=== PATIENT | male | born 1960 | race Caucasian/White ===

== ENCOUNTER 2017-07-22 15:19 | Emergency (ER) | payer MEDICARE ==
[~2017-07-22] VITALS: Ht 175.3 cm; Wt 165.9 kg
[~2017-07-22 15:19] MED LIST: ALLO100T30 PO; ALLO300T PO; AMOX1TAB64 PO; ATOR10TA9 PO; LEVO750T6 PO; LISI-167 PO; METR500T PO; OXYC1TAB7 PO; RIVA20TA PO; SILV20CR13
[2017-07-22] MEDS ORDERED: SODIUM CHLORIDE FLUSH 10ML SYR IVF ONE (16:00)
[2017-07-22 16:27] LABS: HEMATOCRIT 46.5 % (39.2-51.8); HEMOGLOBIN 15.4 g/dL (13.7-18.0); WHITE BLOOD COUNT 9.4 x10^3/uL (3.4-10)
[2017-07-22 16:44] LABS: BLOOD UREA NITROGEN 20 mg/dL (7-18)
[2017-07-22 16:49] LABS: IS PT STATUS REG ER OR PRE ER? YES
[2017-07-22] MEDS ORDERED: ACETAMINOPHEN 325 MG TABLET ONE (17:55)
[2017-07-22] MEDS ORDERED: ACETAMINOPHEN 325 MG TABLET PO ONE (18:00)
[2017-07-22 18:38] VITALS: BP 122/72
== END 2017-07-22 19:28 | disposition home or self-care (01) ==
LOC: ED 17:48
DX: S70.02XA Contusion of left hip, initial encounter (principal); S20.212A Contusion of left front wall of thorax, initial encounter; E11.9 Type 2 diabetes mellitus without complications; I10 Essential (primary) hypertension; I25.2 Old myocardial infarction; I25.10 Atherosclerotic heart disease of native coronary artery without angina pectoris; Z86.718 Personal history of other venous thrombosis and embolism; Z86.73 Personal history of transient ischemic attack (TIA), and cerebral infarction without residual deficits; V89.2XXA Person injured in unspecified motor-vehicle accident, traffic, initial encounter; Y93.89 Activity, other specified; Y92.89 Other specified places as the place of occurrence of the external cause; Y99.9 Unspecified external cause status
CPT/HCPCS: 36415; 70450; 71010; 80048; 82040; 84484; 85025; 85610; 93005; 99285

== ENCOUNTER 2017-08-15 12:35 | Inpatient (IN) | payer MEDICARE ==
[~2017-08-15] VITALS: Ht 177.8 cm; Wt 168.9 kg
[2017-08-15] MEDS ORDERED: ONDANSETRON 2MG/ML, 2ML IVPush PRN (17:00)
[2017-08-15] MEDS ORDERED: ONDANSETRON ODT 4 MG PO PRN (17:00)
[2017-08-15] MEDS ORDERED: LABETALOL 5MG/ML, 20ML IVPush PRN (17:00)
[2017-08-15] MEDS ORDERED: GUAIFENESIN/DM 200-20MG, 10ML UDC PO PRN (17:00)
[2017-08-15 17:11] LABS: BASOPHILS # (AUTO) 0.05 x10^3/uL (0-0.1); BASOPHILS % (AUTO) 1 % (0-1); EOSINOPHILS # (AUTO) 0.07 x10^3/uL (0-0.4); EOSINOPHILS % (AUTO) 1 % (1-7); LYMPHOCYTES # (AUTO) 1.34 x10^3/uL (1-3.4); LYMPHOCYTES % (AUTO) 13 % (22-44); MD NO; MEAN CORPUSCULAR HGB CONC 33.6 g/dL (33.2-36.2); MEAN CORPUSCULAR VOLUME 98.1 fL (81-97); MEAN PLATELET VOLUME 7.5 fL (7.4-10.4); MONOCYTES # (AUTO) 0.56 x10^3/uL (0.2-0.8); MONOCYTES % (AUTO) 6 % (2-9); NEUTROPHILS # (AUTO) 7.96 x10^3/uL (1.8-6.8); NEUTROPHILS % (AUTO) 80 % (42-75); PLATELET COUNT 230 x10^3/uL (130-400); RED BLOOD COUNT 4.47 x10^6/uL (4.38-5.82); RED CELL DISTRIBUTION WIDTH 15.3 % (9.4-14.8)
[2017-08-15 17:16] LABS: INTERNATIONAL NORMALIZED RATIO 1.04 (0.93-1.1); PROTHROMBIN TIME 10.8 Seconds (9.6-11.5)
[2017-08-15 17:20] LABS: ALBUMIN 3.7 g/dL (3.4-5.0); ANION GAP 7 mmol/L (5-15); CHLORIDE 108 mmol/L (98-107)
[2017-08-15 17:23] LABS: ALANINE AMINOTRANSFERASE 29 U/L (12-78); ALKALINE PHOSPHATASE 77 U/L (45-117); BILIRUBIN,TOTAL 0.5 mg/dL (0.2-1.0); CREATININE 1.42 mg/dL (0.7-1.3); TOTAL PROTEIN 7.3 g/dL (6.4-8.2)
[2017-08-15 17:52] VITALS: BP 146/78
[2017-08-15 18:36] LABS: CULTURE INDICATED? NO; MICROSCOPIC NOT IND
[2017-08-15] MEDS: HYDROcodone/APAP 5/325 TABLET PO PRN (19:28)
[2017-08-15 19:30] VITALS: BP 119/73
[2017-08-15] MEDS: ATORVASTATIN 10 MG TABLET PO SCH (21:16)
[2017-08-16] MEDS: HYDROcodone/APAP 5/325 TABLET PO PRN ×4 (02:46→23:07)
[2017-08-16 02:54] VITALS: BP 121/69
[2017-08-16 06:45] VITALS: BP 132/84
[2017-08-16] MEDS: ALLOPURINOL 300 MG TABLET PO SCH (08:33)
[2017-08-16] MEDS: LISINOPRIL 20 MG TABLET PO SCH (08:33)
[2017-08-16] MEDS: SENNA/DOCUSATE TABLET PO SCH (08:33)
[2017-08-16] MEDS: RIVAROXABAN 20 MG TABLET PO SCH (08:33)
[2017-08-16 13:05] VITALS: BP 120/76
[2017-08-16 16:30] LABS: MEAN CORPUSCULAR HEMOGLOBIN 32.5 pg (27.5-34.5); MEAN CORPUSCULAR HGB CONC 33.2 g/dL (33.2-36.2); MEAN PLATELET VOLUME 7.3 fL (7.4-10.4); PLATELET COUNT 201 x10^3/uL (130-400); RED BLOOD COUNT 4.18 x10^6/uL (4.38-5.82); RED CELL DISTRIBUTION WIDTH 15.3 % (9.4-14.8)
[2017-08-16 16:37] LABS: ANION GAP 9 mmol/L (5-15); CALCIUM 8.3 mg/dL (8.5-10.1); CHLORIDE 107 mmol/L (98-107); CREATININE 1.22 mg/dL (0.7-1.3)
[2017-08-16 16:44] LABS: BASOPHILS # (AUTO) 0.02 x10^3/uL (0-0.1); BASOPHILS % (AUTO) 0 % (0-1); EOSINOPHILS # (AUTO) 0.17 x10^3/uL (0-0.4); EOSINOPHILS % (AUTO) 3 % (1-7); LYMPHOCYTES # (AUTO) 1.55 x10^3/uL (1-3.4); LYMPHOCYTES % (AUTO) 23 % (22-44); MD SCAN; MONOCYTES # (AUTO) 0.56 x10^3/uL (0.2-0.8); MONOCYTES % (AUTO) 8 % (2-9); NEUTROPHILS # (AUTO) 4.41 x10^3/uL (1.8-6.8); NEUTROPHILS % (AUTO) 66 % (42-75)
[2017-08-16 20:09] VITALS: BP 115/75
[2017-08-16] MEDS: ATORVASTATIN 10 MG TABLET PO SCH (20:10)
[2017-08-17 03:44] VITALS: BP 125/73
[2017-08-17] MEDS: HYDROcodone/APAP 5/325 TABLET PO PRN ×2 (06:40→11:41)
[2017-08-17 06:59] VITALS: BP 145/84
[2017-08-17] MEDS: RIVAROXABAN 20 MG TABLET PO SCH (08:48)
[2017-08-17] MEDS: SENNA/DOCUSATE TABLET PO SCH (08:48)
[2017-08-17] MEDS: LISINOPRIL 20 MG TABLET PO SCH (08:48)
[2017-08-17] MEDS: ALLOPURINOL 300 MG TABLET PO SCH (08:48)
[2017-08-17] MEDS: POLYETHYLENE GLYCOL 17 GM PACKET PO PRN (08:54)
[2017-08-17 14:16] VITALS: BP 126/80
[2017-08-17 19:16] VITALS: BP 142/76
[2017-08-17] MEDS: ATORVASTATIN 10 MG TABLET PO SCH (20:24)
[2017-08-18 02:47] VITALS: BP 122/77
[2017-08-18 08:22] VITALS: BP 135/82
[2017-08-18] MEDS: ALLOPURINOL 300 MG TABLET PO SCH (09:23)
[2017-08-18] MEDS: LISINOPRIL 20 MG TABLET PO SCH (09:23)
[2017-08-18] MEDS: SENNA/DOCUSATE TABLET PO SCH (09:23)
[2017-08-18] MEDS: RIVAROXABAN 20 MG TABLET PO SCH (09:23)
[2017-08-18] MEDS: POLYETHYLENE GLYCOL 17 GM PACKET PO PRN (09:27)
[2017-08-18 12:42] VITALS: BP 147/87
[2017-08-18] MEDS: HYDROcodone/APAP 5/325 TABLET PO PRN (14:07)
[2017-08-18 14:20] VITALS: BP 147/87
== END 2017-08-18 15:00 | DRG 562 ==
LOC: ED 15:04 → EDIP 16:44 → 4NOR 17:37
PROVIDERS: ADMIT Hospitalist; ATTEND Hospitalist
DX: S92.065A Nondisplaced intraarticular fracture of left calcaneus, initial encounter for closed fracture (principal); N17.0 Acute kidney failure with tubular necrosis; E66.01 Morbid (severe) obesity due to excess calories; D68.69 Other thrombophilia; Z68.43 Body mass index [BMI] 50.0-59.9, adult; I69.351 Hemiplegia and hemiparesis following cerebral infarction affecting right dominant side; W01.0XXA Fall on same level from slipping, tripping and stumbling without subsequent striking against object, initial encounter; S92.002A Unspecified fracture of left calcaneus, initial encounter for closed fracture; D17.9 Benign lipomatous neoplasm, unspecified; E11.9 Type 2 diabetes mellitus without complications; M10.9 Gout, unspecified; M21.372 Foot drop, left foot; E78.5 Hyperlipidemia, unspecified; Y93.01 Activity, walking, marching and hiking; I10 Essential (primary) hypertension; S93.492A Sprain of other ligament of left ankle, initial encounter; I25.10 Atherosclerotic heart disease of native coronary artery without angina pectoris; I25.2 Old myocardial infarction; Z79.899 Other long term (current) drug therapy; Z82.3 Family history of stroke; Z83.3 Family history of diabetes mellitus; Z85.72 Personal history of non-Hodgkin lymphomas; Z98.84 Bariatric surgery status; Z86.711 Personal history of pulmonary embolism; Z79.01 Long term (current) use of anticoagulants; Z86.718 Personal history of other venous thrombosis and embolism; Z90.89 Acquired absence of other organs; Z90.49 Acquired absence of other specified parts of digestive tract; Y92.091 Bathroom in other non-institutional residence as the place of occurrence of the external cause; Y99.8 Other external cause status
CPT/HCPCS: 29515; 36415; 80048; 80053; 81003; 83735; 85025; 85610; 85730; 99285

== ENCOUNTER 2018-02-08 01:06 | Emergency (ER) | payer MEDICARE ==
[~2018-02-08] VITALS: Ht 177.8 cm; Wt 150.0 kg
[2018-02-08 01:48] LABS: BASOPHILS # (AUTO) 0.04 x10^3/uL (0-0.1); BASOPHILS % (AUTO) 0 % (0-1); EOSINOPHILS # (AUTO) 0.16 x10^3/uL (0-0.4); EOSINOPHILS % (AUTO) 1 % (1-7); LYMPHOCYTES # (AUTO) 2.11 x10^3/uL (1-3.4); LYMPHOCYTES % (AUTO) 17 % (22-44); MD NO; MEAN CORPUSCULAR HGB CONC 33.4 g/dL (33.2-36.2); MEAN CORPUSCULAR VOLUME 98.9 fL (81-97); MEAN PLATELET VOLUME 7.7 fL (7.4-10.4); MONOCYTES # (AUTO) 0.44 x10^3/uL (0.2-0.8); MONOCYTES % (AUTO) 4 % (2-9); NEUTROPHILS # (AUTO) 9.35 x10^3/uL (1.8-6.8); NEUTROPHILS % (AUTO) 77 % (42-75); PLATELET COUNT 228 x10^3/uL (130-400); RED BLOOD COUNT 4.25 x10^6/uL (4.38-5.82); RED CELL DISTRIBUTION WIDTH 15.4 % (9.4-14.8)
[2018-02-08 01:59] LABS: ALBUMIN 3.6 g/dL (3.4-5.0); ANION GAP 5 mmol/L (5-15); CHLORIDE 114 mmol/L (98-107); CREATININE 1.46 mg/dL (0.7-1.3)
[2018-02-08] MEDS ORDERED: PHENAZOPYRIDINE 200 MG TABLET ONE (02:18)
[2018-02-08] MEDS ORDERED: CEFDINIR 300 MG CAPSULE ONE (02:18)
[2018-02-08 02:20] LABS: MICROSCOPIC AUTO
[2018-02-08 02:22] VITALS: BP 116/66
[2018-02-08 02:22] LABS: CULTURE INDICATED? YES
[2018-02-08] MEDS ORDERED: PHENAZOPYRIDINE 200 MG TABLET PO ONE (02:30)
[2018-02-08] MEDS ORDERED: CEFDINIR 300 MG CAPSULE PO ONE (02:30)
== END 2018-02-08 02:46 | disposition home or self-care (01) ==
LOC: ED 02:25
DX: N30.00 Acute cystitis without hematuria (principal); I10 Essential (primary) hypertension; E11.9 Type 2 diabetes mellitus without complications; K21.9 Gastro-esophageal reflux disease without esophagitis; E78.5 Hyperlipidemia, unspecified; I25.2 Old myocardial infarction; Z86.73 Personal history of transient ischemic attack (TIA), and cerebral infarction without residual deficits; Z90.89 Acquired absence of other organs; Z90.49 Acquired absence of other specified parts of digestive tract; Z95.1 Presence of aortocoronary bypass graft; M10.9 Gout, unspecified
CPT/HCPCS: 36415; 80048; 81001; 82040; 85025; 87077; 87086; 87186; 99284

== ENCOUNTER 2019-07-30 10:10 | Emergency (ER) | payer MEDICARE ==
[~2019-07-30] VITALS: Ht 175.3 cm; Wt 150.2 kg
--- NOTE | 2019-07-30 10:55 | NUR ---
PT WITH C/O LBP WHICH HAS INCREASED OVER THE LAST 3 DAYS. PT HAS CHRONIC BACK PAIN AND IS WHEELCHAIR BOUND AT HOME. PT DENIES URINARY SYMPTOMS. UA ORDERED, PT GIVEN URINAL AND EDUCATED ON CLEAN CATCH. PT TO BP, CONT PULSE OX
[2019-07-30 11:13] LABS: BASOPHILS # (AUTO) 0.05 x10^3/uL (0-0.1); BASOPHILS % (AUTO) 1 % (0-1); EOSINOPHILS # (AUTO) 0.07 x10^3/uL (0-0.4); EOSINOPHILS % (AUTO) 1 % (1-7); LYMPHOCYTES # (AUTO) 1.85 x10^3/uL (1-3.4); LYMPHOCYTES % (AUTO) 33 % (22-44); MD NO; MEAN CORPUSCULAR HEMOGLOBIN 33.9 pg (27.5-34.5); MEAN CORPUSCULAR VOLUME 102.8 fL (81-97); MEAN PLATELET VOLUME 7.4 fL (7.4-10.4); MONOCYTES # (AUTO) 0.41 x10^3/uL (0.2-0.8); MONOCYTES % (AUTO) 7 % (2-9); NEUTROPHILS # (AUTO) 3.21 x10^3/uL (1.8-6.8); NEUTROPHILS % (AUTO) 57 % (42-75); PLATELET COUNT 238 x10^3/uL (130-400); RED BLOOD COUNT 4.35 x10^6/uL (4.38-5.82); RED CELL DISTRIBUTION WIDTH 16.1 % (9.4-14.8)
[2019-07-30 11:22] LABS: ALANINE AMINOTRANSFERASE 34 U/L (12-78); ALBUMIN 3.8 g/dL (3.4-5.0); ANION GAP 8 mmol/L (5-15); CALCIUM 9.2 mg/dL (8.5-10.1); CHLORIDE 109 mmol/L (98-107); CREATININE 1.27 mg/dL (0.7-1.3)
[2019-07-30 11:25] LABS: ALKALINE PHOSPHATASE 60 U/L (45-117); BILIRUBIN,TOTAL 0.7 mg/dL (0.2-1.0); TOTAL PROTEIN 7.4 g/dL (6.4-8.2)
[2019-07-30 11:29] LABS: MICROSCOPIC AUTO
[2019-07-30 11:34] LABS: CULTURE INDICATED? NO
--- NOTE | 2019-07-30 12:46 | NUR ---
TASK RN: PT RESTING ON JM. NADN. ADAIRS. PIV INITIATED. PT TAKEN TO CT IN STABLE CONDITION.
[2019-07-30] MEDS ORDERED: OMNIPAQUE 350 MG/ML, 100ML BOTTLE ONE (13:06)
[2019-07-30 14:35] VITALS: BP 141/76
== END 2019-07-30 14:37 | disposition home or self-care (01) ==
LOC: ED 11:18
DX: M54.5 Low back pain (principal); E11.9 Type 2 diabetes mellitus without complications; I25.10 Atherosclerotic heart disease of native coronary artery without angina pectoris; K21.9 Gastro-esophageal reflux disease without esophagitis; I10 Essential (primary) hypertension; E78.5 Hyperlipidemia, unspecified; M10.9 Gout, unspecified; Z86.73 Personal history of transient ischemic attack (TIA), and cerebral infarction without residual deficits; Z90.89 Acquired absence of other organs; Z90.49 Acquired absence of other specified parts of digestive tract; Z95.1 Presence of aortocoronary bypass graft; Z86.718 Personal history of other venous thrombosis and embolism
CPT/HCPCS: 36415; 74177; 80053; 81001; 83690; 85025; 99284; Q9967

== ENCOUNTER 2020-02-25 03:59 | Emergency (ER) | payer MEDICARE ==
[~2020-02-25] VITALS: Ht 177.8 cm; Wt 138.0 kg
[2020-02-25 05:04] LABS: ALBUMIN 3.5 g/dL (3.4-5.0); ANION GAP 4 mmol/L (5-15); CALCIUM 9.2 mg/dL (8.5-10.1); CHLORIDE 111 mmol/L (98-107); CREATININE 1.25 mg/dL (0.7-1.3)
[2020-02-25 05:25] LABS: MICROSCOPIC INDICATED
[2020-02-25 05:30] LABS: BASOPHILS # (AUTO) 0.03 x10^3/uL (0-0.1); BASOPHILS % (AUTO) 0 % (0-1); EOSINOPHILS # (AUTO) 0.06 x10^3/uL (0-0.4); EOSINOPHILS % (AUTO) 1 % (1-7); LYMPHOCYTES # (AUTO) 1.14 x10^3/uL (1-3.4); LYMPHOCYTES % (AUTO) 10 % (22-44); MD NO; MEAN CORPUSCULAR HEMOGLOBIN 33.5 pg (27.5-34.5); MEAN CORPUSCULAR HGB CONC 32.9 g/dL (33.2-36.2); MEAN PLATELET VOLUME 8.3 fL (7.4-10.4); MONOCYTES # (AUTO) 0.44 x10^3/uL (0.2-0.8); MONOCYTES % (AUTO) 4 % (2-9); NEUTROPHILS # (AUTO) 9.83 x10^3/uL (1.8-6.8); NEUTROPHILS % (AUTO) 86 % (42-75); PLATELET COUNT 211 x10^3/uL (130-400); RED BLOOD COUNT 3.92 x10^6/uL (4.38-5.82); RED CELL DISTRIBUTION WIDTH 15.9 % (9.4-14.8)
--- NOTE | 2020-02-25 05:30 | NUR ---
Patient presents to ER c/o dysuria and pain with urination since yesterday. He states the symptoms became worse overnight. Patient has a hx of UTIs. Denies GI symptoms. Patient is in NAD. Respirations even and unlabored.
[2020-02-25] MEDS ORDERED: CEFTRIAXONE 1,000 MG ONE (05:57)
[2020-02-25] MEDS ORDERED: LIDOCAINE-MPF 1%, 2ML ONE (05:58)
[2020-02-25] MEDS ORDERED: CEFTRIAXONE 1,000 MG IM ONE (06:00)
--- NOTE | 2020-02-25 06:07 | NUR ---
Patient in CT.
--- NOTE | 2020-02-25 06:49 | NUR ---
CARE OF PT ASSUMED
[2020-02-25 07:48] VITALS: BP 110/60
== END 2020-02-25 07:52 | disposition home or self-care (01) ==
LOC: ED 05:39
DX: N30.00 Acute cystitis without hematuria (principal); Z87.430 Personal history of prostatic dysplasia; E11.9 Type 2 diabetes mellitus without complications; I25.2 Old myocardial infarction; I25.10 Atherosclerotic heart disease of native coronary artery without angina pectoris; Z86.73 Personal history of transient ischemic attack (TIA), and cerebral infarction without residual deficits; I10 Essential (primary) hypertension
CPT/HCPCS: 36415; 74176; 80048; 81001; 82040; 85025; 87077; 87086; 87147; 87186; 99285